=== PATIENT | female | born 2000 | race Caucasian/White ===

== ENCOUNTER 2021-08-16 19:39 | Emergency (ER) | payer OTHER ==
[~2021-08-16] VITALS: Ht 172.7 cm; Wt 65.8 kg
[2021-08-16 21:10] VITALS: BP 122/55
== END 2021-08-16 21:10 | disposition home or self-care (01) ==
LOC: M.ERS 19:39
DX: Z20.822 Contact with and (suspected) exposure to COVID-19 (principal)

== ENCOUNTER 2021-08-26 17:59 | Emergency (ER) | payer OTHER ==
[~2021-08-26] VITALS: Ht 172.7 cm; Wt 63.5 kg
[2021-08-26 18:05] VITALS: BP 126/72
== END 2021-08-26 18:21 | disposition home or self-care (01) ==
LOC: M.ERS 17:59
DX: Z20.822 Contact with and (suspected) exposure to COVID-19 (principal); Z88.7 Allergy status to serum and vaccine